=== PATIENT | female | born 1955 | race Caucasian/White ===

== ENCOUNTER → 2022-08-14 | Emergency (ER) | payer OTHER, BC ==
[~2022-08-14] VITALS: Ht 157.5 cm; Wt 54.4 kg
[~2022-08-14] MED LIST: MEDROLPACK PO
== END | disposition home or self-care (01) ==
LOC: ER 14:23
DX: R49.0 Dysphonia (principal)

== ENCOUNTER → 2022-10-25 | Outpatient (CLI) | payer OTHER, BC | END | disposition home or self-care (01) | LOC: RAD 11:36 | DX: M40.40 Postural lordosis, site unspecified (principal) ==

== ENCOUNTER 2023-03-04 12:45 | Outpatient (CLI) | payer OTHER, BC | END 2023-03-04 12:51 | disposition home or self-care (01) | LOC: MAMO-SONO 12:45 | DX: Z12.31 Encounter for screening mammogram for malignant neoplasm of breast (principal) ==

== ENCOUNTER → 2023-03-05 | Outpatient (CLI) | payer OTHER, BC | END | disposition home or self-care (01) | LOC: NUCLEAR 13:44 | DX: M85.80 Other specified disorders of bone density and structure, unspecified site (principal) ==

== ENCOUNTER 2024-06-03 14:23 | Outpatient (CLI) | payer OTHER, BC | END 2024-06-03 14:30 | disposition home or self-care (01) | LOC: SONOGRAMA 14:23 | PROVIDERS: ATTEND Internal Medicine | DX: E03.9 Hypothyroidism, unspecified (principal) ==

== ENCOUNTER 2024-11-17 09:33 | Outpatient (CLI) | payer OTHER, BC | END 2024-11-17 09:35 | disposition home or self-care (01) | LOC: MAMO-SONO 09:33 | PROVIDERS: ATTEND Internal Medicine | DX: Z12.31 Encounter for screening mammogram for malignant neoplasm of breast (principal) ==